=== PATIENT | female | born 1960 | race Caucasian/White ===

== ENCOUNTER 2018-10-30 10:04 | Emergency (ER) | payer OTHER ==
[2018-10-30 11:05] VITALS: BP 102/67
--- NOTE | 2018-10-30 11:12 | UC ---
Skin Complaint HPI - HPI Summary HPI Summary: 58 yo female presents with rash to left arm. Over the last 4-5 days has noticed a small red bump to her left forearm that has turned into a bruise. She is concerned it may have been a tick bite. She does not recall having a tick attached. Has been applying essential oils to the area that she says have improved the healing. - History of Current Complaint Chief Complaint: UCSkin Time Seen by Provider: 10/30/18 11:12 Stated Complaint: TICK BITE Hx Obtained From: Patient Hx Last Menstrual Period: 3-4 mos ago Onset/Duration: Gradual Onset Pain Intensity: 0 - Allergy/Home Medications Allergies/Adverse Reactions: Allergies Allergy/AdvReac Type Severity Reaction Status Date / Time No Known Allergies Allergy Verified 10/30/18 11:05 Home Medications: Home Medications PARoxetine HCL TAB* [Paxil TAB*] 40 mg PO DAILY 10/30/18 [History Confirmed 01/11] PMH/Surg Hx/FS Hx/Imm Hx Psychological History: Anxiety, Depression - Surgical History Surgical History: Yes Surgery Procedure, Year, and Place: repair of kidney left - Family History Known Family History: Positive: Hypertension - Social History Lives: With Family Alcohol Use: Daily Substance Use Type: None Smoking Status (MU): Never Smoked Tobacco Review of Systems All Other Systems Reviewed And Are Negative: Yes Constitutional: Positive: Negative Skin: Positive: Rash Respiratory: Positive: Negative Cardiovascular: Positive: Negative Neurovascular: Positive: Negative Neurological: Positive: Negative Psychological: Positive: Negative Physical Exam - Summary Physical Exam Summary: GENERAL: NAD. WDWN. No pain distress. SKIN: LEFT forearm dorsal aspect with 5mm ecchymotic ring. NTTP. No warmth, edema, erythema. No drainage. CHEST: No accessory muscle use. Breathing comfortably and in no distress. CV: Pulses intact. Cap refill <2seconds NEURO: Alert. PSYCH: Age appropriate behavior. Triage Information Reviewed: Yes Vital Signs: Initial Vital Signs Temp 97.5 F 10/30/18 10:59 Pulse 91 10/30/18 10:59 Resp 18 10/30/18 10:59 BP 102/67 10/30/18 10:59 Pulse Ox 100 10/30/18 10:59 Vital Signs Reviewed: Yes Course/Dx - Course Course Of Treatment: Discussed with pt that this does appear consistent with a tick bite, but it is in an area that is very noticeable and she, likely, would have noticed a tick attached. We discussed the role of prophylactic doxycycline at this time and she elected to decline treatment, but would like to be tested for lyme disease. Lyme panel was drawn today and we will call her with results - Diagnoses Provider Diagnosis: Tick bite Discharge - Sign-Out/Discharge Documenting (check all that apply): Patient Departure All imaging exams completed and their final reports reviewed: No Studies - Discharge Plan Condition: Stable Disposition: HOME Patient Education Materials: Lyme Disease (ED), Tick Bite (ED) Referrals: No Primary Care Phys,NOPCP [Primary Care Provider] - Additional Instructions: If you develop a fever, shortness of breath, chest pain, new or worsening symptoms - please call your PCP or go to the ED immediately. - Billing Disposition and Condition Condition: STABLE Disposition: Home
== END 2018-10-30 12:18 | disposition home or self-care (01) ==
LOC: UCEAST 10:04
DX: S50.862A Insect bite (nonvenomous) of left forearm, initial encounter (principal); R21 Rash and other nonspecific skin eruption; W57.XXXA Bitten or stung by nonvenomous insect and other nonvenomous arthropods, initial encounter; Y92.9 Unspecified place or not applicable; F41.9 Anxiety disorder, unspecified; F32.9 Major depressive disorder, single episode, unspecified
CPT/HCPCS: 36415; 86618; 99201; G0463

== ENCOUNTER → 2018-12-05 16:26 | Emergency (ER) | payer OTHER ==
[~2018-12-05 16:26] MED LIST: NS 0.9% 1000 ML** 1,000 ML IV ONE
[2018-12-05 16:45] VITALS: BP 107/76
== END | disposition home or self-care (01) ==
LOC: ED 16:26
DX: Z53.21 Procedure and treatment not carried out due to patient leaving prior to being seen by health care provider (principal)
CPT/HCPCS: 96360; 99281

== ENCOUNTER 2018-12-11 13:41 | Emergency (ER) | payer OTHER ==
[2018-12-11 13:58] VITALS: BP 89/55
--- NOTE | 2018-12-11 14:56 | UC ---
Skin Complaint HPI - HPI Summary HPI Summary: 58 y/o female presents to the urgent care accompany by significant other c/o a circular bruise area to lt forearm. Pt would like it checked out. pt is concerned that this is a bulls eye from a tick bite. Pt was seen here for possible tick bite on 10/30/2018 and declines prophylactic treatment for tick bite , but a Lyme Serology was done which returned negative. She states now this circular bruise appear close to where she had the tick bite a month ago and also she has another smaller one in her left lower leg. She wants to make sure it is not erythema Migrans. She is very anxious. Her partner states she has been feeling w/ fatigue and decrease appetite and her PCP Dr Montgomery ordered blood work on 12/06/2018 which returned abnormal for low RBC and low WBC and low protein. He just ordered a 24 hr protein in the urine and other test for tomorrow since they have a f/u appt this coming Monday12/14/2018. Pt states circular bruise is not painful. Pt deneis fever, ALEJANDRO, dizziness, SOB, chest pain , abdominal pain, N/V/D. Denies taking blood thinners - History of Current Complaint Chief Complaint: UCSkin Time Seen by Provider: 12/11/18 14:54 Stated Complaint: SKIN ISSUE Hx Obtained From: Patient Hx Last Menstrual Period: 3-4 mos ago ?: No Onset/Duration: Sudden Onset, Lasting Weeks - 1 week, Still Present Skin Exposure Onset/Duration: Weeks Ago - 1 month ago, possible tick bite which resolved and now it has returned Timing: Constant Onset Severity: Mild Current Severity: Mild Pain Intensity: 0 Pain Scale Used: 0-10 Numeric Location: Discrete - left forearm w/ a circular bruise Character: Redness Aggravating Factor(s): Nothing Alleviating Factor(s): Nothing Associated Signs & Symptoms: Positive: Rash - circular bruise in the left forearm. Negative: Drainage, Tenderness Related History: Possible Reaction to: Insect - tick bite 1 month ago - Allergy/Home Medications Allergies/Adverse Reactions: Allergies Allergy/AdvReac Type Severity Reaction Status Date / Time No Known Allergies Allergy Verified 12/11/18 13:58 PMH/Surg Hx/FS Hx/Imm Hx Previously Healthy: Yes Psychological History: Anxiety, Depression - Surgical History Surgical History: Yes Surgery Procedure, Year, and Place: repair of kidney left - Family History Known Family History: Positive: Hypertension - Social History Occupation: Unemployed Lives: With Family Alcohol Use: Daily Substance Use Type: None Smoking Status (MU): Never Smoked Tobacco Review of Systems All Other Systems Reviewed And Are Negative: Yes Constitutional: Positive: Negative, Fatigue, Other - decrease appetite Skin: Positive: Rash - circular bruise in the left forearm, possible tick bite Eyes: Positive: Negative ENT: Positive: Negative Respiratory: Positive: Negative Cardiovascular: Positive: Negative Gastrointestinal: Positive: Negative Genitourinary: Positive: Negative Motor: Positive: Negative Neurovascular: Positive: Negative Musculoskeletal: Positive: Negative Neurological: Positive: Negative Psychological: Positive: Negative Is Patient Immunocompromised?: No Physical Exam - Summary Physical Exam Summary: Vital Signs Reviewed: Yes General: well developed, well nourished female sitting in the examining table w/ o any apparent distress. Eyes: Positive: Conjunctiva Clear - PERRLA, EOMI ENT: Positive: Normal ENT inspection, Hearing grossly normal, Pharynx normal, TMs normal Neck: Positive: Supple, Nontender, No Lymphadenopathy Respiratory: Positive: Chest nontender, Lungs clear, Normal breath sounds Cardiovascular: Positive: RRR, No Murmur, Pulses Normal Abdomen Description: Positive: Nontender, No Organomegaly, Soft. Negative: CVA Tenderness (R), CVA Tenderness (L) Bowel Sounds: Positive: Present Musculoskeletal: Positive: Strength Intact, ROM Intact, No Edema Neurological Exam: Normal Psychological Exam: Normal Skin: Positive: rashes positive petechial circular rash in the shape of a coin in the dorsal side of the left forearm about 1.0cm x1.0c in size non tender on palpation. Also left lower leg w/ 2 similar ones , but smaller in size about 0.5cm in size, no drainage observed. Triage Information Reviewed: Yes Vital Signs: Initial Vital Signs Temp 98.2 F 12/11/18 13:49 Pulse 89 12/11/18 13:49 Resp 18 12/11/18 13:49 BP 89/55 12/11/18 13:49 Pulse Ox 97 12/11/18 13:49 Course/Dx - Course Course Of Treatment: 58 y/o female presents to the urgent care accompany by significant other c/o a circular bruise area to lt forearm. Pt would like it checked out. pt is concerned that this is a bulls eye from a tick bite. Pt was seen here for possible tick bite on 10/30/2018 and declines prophylactic treatment for tick bite , but a Lyme Serology was done which returned negative. She states now this circular bruise appear close to where she had the tick bite a month ago and also she has another smaller one in her left lower leg. She wants to make sure it is not erythema Migrans. She is very anxious. Her partner states she has been feeling w/ fatigue and decrease appetite and her PCP Dr Montgomery ordered blood work on 12/06/2018 which returned abnormal for low RBC and low WBC and low protein. He just ordered a 24 hr protein in the urine and other test for tomorrow since they have a f/u appt this coming Monday12/14/2018. Pt states circular bruise is not painful. Pt deneis fever, ALEJANDRO, dizziness, SOB, chest pain , abdominal pain, N/V/D.Denies taking blood thinners Hx obtained. Pt is hemodynamically stable, Vial WLN. Pt w/ petechial rash in the shape of a coin in the dorsal side of the left forearm about 1.0cm x1.0c in size non tender on palpation. Also left lower leg w/ 2 similar ones abou 0.5cm in size on examination. Pt may be presenting w/ possible vasculitis or contusion??. I reviewed Pt's recent labs w/ DR Williamson and she recommended to emphasis the importance of f/u PCP DR Montgomery and blood work. Pt and significant other clarified that the rash is not related to lyme and that it is probably due to her abnormal blood work and strongly advised to f/u w/ DR Montgomery. D/C instructions explained. Pt and partner understood and agreed w/ plan of care. Pt left clinic hemodynamically stable, A&OX3 - Differential Diagnoses - Skin Complaint Differential Diagnoses: Abscess, Cellulitis, Contact Dermatitis, Local Allergic Reaction, Tick Born Illness, Other - vaculitis - Diagnoses Provider Diagnosis: Contusion of right forearm Discharge - Sign-Out/Discharge Documenting (check all that apply): Patient Departure - d/C home All imaging exams completed and their final reports reviewed: No Studies - Discharge Plan Condition: Stable Disposition: HOME Patient Education Materials: Hematoma (ED) Referrals: Rene Montgomery, [employer] [Primary Care Provider] - 3 Days Additional Instructions: 1- I think your rash is a possible a bruise from previous contusion. However since your CBC is abnormal, I highly recommend you to f/u w/ your PCP DR Montgomery in your appt 12/14/2018 2- If you develop generalized bruises or abnormal bleeding please go immediately to the ER for further management - Billing Disposition and Condition Condition: STABLE Disposition: Home - Attestation Statements Provider Attestation: I was available for consult. This patient was seen by the RYLIE. The patient was not presented to, seen by, or examined by me. -Aas
== END 2018-12-11 15:30 | disposition home or self-care (01) ==
LOC: UCEAST 13:41
DX: S50.12XA Contusion of left forearm, initial encounter (principal); X58.XXXA Exposure to other specified factors, initial encounter; Y92.9 Unspecified place or not applicable
CPT/HCPCS: 99211; G0463